=== PATIENT | female | born 1965 | race Two or more races ===

== ENCOUNTER 2020-10-02 14:16 | Inpatient (IN) ==
[2020-10-02] MEDS ORDERED: PNEUMOCOCCAL VACCINE (23 VALENT) 0.5 ML VIAL IM ONE (17:00)
[2020-10-02] MEDS ORDERED: INFLUENZA VIRUS VACCINE 0.5 ML SYRINGE IM ONE (17:00)
[2020-10-02] MEDS ORDERED: GLUCAGON 1 MG VIAL IM PRN ×2 (18:20)
[2020-10-02] MEDS ORDERED: ONDANSETRON 4 MG/2 ML VIAL IV PRN (18:20)
[2020-10-02] MEDS ORDERED: ACETAMINOPHEN 325 MG TABLET PO PRN (18:20)
[2020-10-02] MEDS ORDERED: DEXTROSE 50% 25 GM/50 ML VIAL IV PRN ×2 (18:20)
[2020-10-02] MEDS ORDERED: ENOXAPARIN 40 MG/0.4 ML SYRINGE SUBCUT SCH (18:30)
[2020-10-02] MEDS ORDERED: NICOTINE 7 MG/24 HR PATCH TRANSDERM PRN (19:16)
[2020-10-02] MEDS ORDERED: ALBUTEROL/IPRATROPIUM 3 ML NEB RESP TX PRN (19:17)
[2020-10-02] MEDS: MORPHINE 4 MG/1 ML VIAL IV PRN (20:29)
[2020-10-02] MEDS ORDERED: ENOXAPARIN 100 MG/ML SYRINGE SUBCUT SCH (21:00)
[2020-10-02] MEDS: INSULIN LISPRO 100 UNIT/ML SUBCUT SCH (21:25)
[2020-10-02] MEDS: NITROGLYCERIN SL 0.4 MG TABLET SL PRN ×3 (23:35→23:53)
[2020-10-03] MEDS: MORPHINE 4 MG/1 ML VIAL IV PRN (00:04)
[2020-10-03 01:29] LABS: Albumin 2.8 G/DL (3.4-5.0); Calcium 8.7 MG/DL (8.5-10.1); Potassium 4.9 MMOL/L (3.5-5.1)
[2020-10-03 02:09] LABS: Basophils # 0.1 10*3/uL (0.0-0.2); Basophils % 1.1 % (0.0-0.8); Eosinophils # 0.4 10*3/uL (0.0-0.87); Eosinophils % 3.9 % (0.00-10.9); Hematocrit 28.8 VOL% (35.7-47.0); Hemoglobin 7.7 GM/DL (12.0-16.0); Immature Granulocytes % 0.5 %; Immature Granulocytes Absolute 0.05 #; Lymphocytes # 2.4 10*3/uL (1.4-4.0); Lymphocytes % 22.4 % (21.3-54.2); Mean Corpuscular HGB Conc 26.7 GM/DL (32-36); Mean Corpuscular Volume 64.6 FL (87-102); Monocytes % 9.9 % (1.7-12.7); NRBC # 0.05 10*3/uL; Neutrophils % 62.2 % (38.7-73.9); Platelet Count 450 T/CUMM (130-400); Red Blood Count 4.46 MC/CUMM (3.8-5.5); Red Cell Distribution Width 20.4 % (9.3-17.3); White Blood Count 10.6 T/CUMM (4-12)
[2020-10-03 02:51] LABS: Anisocytosis 1+; Hypochromasia Slight; Macrocytosis Slight; Microcytosis 1+; Ovalocytes 1+
[2020-10-03 02:52] LABS: Polychromasia Few; Schistocytes Few
[2020-10-03 02:53] LABS: Platelet Estimate Adequate
[2020-10-03 06:10] LABS: Basophils # 0.1 10*3/uL (0.0-0.2); Calcium 8.5 MG/DL (8.5-10.1); Eosinophils # 0.3 10*3/uL (0.0-0.87); Hematocrit 29.5 VOL% (35.7-47.0); Hemoglobin 7.9 GM/DL (12.0-16.0); Immature Granulocytes % 0.4 %; Immature Granulocytes Absolute 0.04 #; Lymphocytes # 2.5 10*3/uL (1.4-4.0); Lymphocytes % 23.9 % (21.3-54.2); Mean Corpuscular HGB Conc 26.8 GM/DL (32-36); Mean Corpuscular Volume 64.1 FL (87-102); Mean Platelet Volume 9.9 FL (9.6-12.0); Monocytes % 9.6 % (1.7-12.7); NRBC # 0.05 10*3/uL; Neutrophils % 62.1 % (38.7-73.9); Osmolality,Calculated 278.8 MOS/KG (273-304); Platelet Count 429 T/CUMM (130-400); Red Cell Distribution Width 20.3 % (9.3-17.3); White Blood Count 10.6 T/CUMM (4-12)
[2020-10-03 06:19] LABS: Ovalocytes 1+; Platelet Estimate Normal; Poikilocytosis 1+
[2020-10-03 06:20] LABS: Anisocytosis 3+; Polychromasia Slight; Tear Drop Cells Few
[2020-10-03 06:21] LABS: Hypochromasia 1+; Macrocytosis Slight
[2020-10-03] MEDS ORDERED: ENOXAPARIN 40 MG/0.4 ML SYRINGE SUBCUT SCH (09:00)
[2020-10-03] MEDS: FUROSEMIDE 40 MG/4 ML VIAL IV SCH ×2 (09:04→17:09)
[2020-10-03] MEDS: INSULIN LISPRO 100 UNIT/ML SUBCUT SCH ×4 (09:05→21:22)
[2020-10-03] MEDS: LEVOFLOXACIN INJ 500 MG in PREMIX 1 EACH IV SCH (09:05)
[2020-10-03] MEDS: ASPIRIN EC 81 MG TABLET PO SCH (09:22)
[2020-10-03] MEDS: LEVOTHYROXINE 25 MCG TABLET PO SCH (09:22)
[2020-10-03] MEDS ORDERED: DIAZEPAM 5 MG TABLET PO ONE (09:40)
[2020-10-03] MEDS ORDERED: POTASSIUM CHLORIDE RIDER 10 MEQ in PREMIX 1 EACH IV PRN (09:40)
[2020-10-03] MEDS ORDERED: diphenhydrAMINE CAP 25 MG CAPSULE PO ONE (09:40)
[2020-10-03] MEDS ORDERED: MAGNESIUM SULF RIDER 2 GM in PREMIX 1 EACH IV PRN (09:40)
[2020-10-03] MEDS ORDERED: HEPARIN/NACL 0.9% 2 UNITS/ML 1,000 ML IV ONE (13:57)
[2020-10-03] MEDS ORDERED: LIDOCAINE 1% 20 ML VIAL ONE (13:57)
[2020-10-03] MEDS ORDERED: NITROGLYCERIN DRIP 50 MG/250 ML BOTTLE IV ONE (14:12)
[2020-10-03] MEDS ORDERED: VERAPAMIL 5 MG/2 ML VIAL ONE (14:12)
[2020-10-03] MEDS ORDERED: HYDROmorphone 2 MG/1 ML VIAL ONE (14:16)
[2020-10-03] MEDS ORDERED: MIDAZOLAM 2 MG/2 ML VIAL ONE (14:17)
[2020-10-03] MEDS ORDERED: diphenhydrAMINE 50 MG/1 ML VIAL ONE (14:21)
[2020-10-03] MEDS ORDERED: ENOXAPARIN 30 MG/0.3 ML SYRINGE ONE (14:30)
[2020-10-03] MEDS ORDERED: DEXTROSE 50% 25 GM/50 ML VIAL IV PRN (14:55)
[2020-10-03] MEDS ORDERED: ZALEPLON 5 MG CAPSULE PO PRN (14:55)
[2020-10-03] MEDS: carvediloL 3.125 MG TABLET PO SCH (21:22)
[2020-10-03] MEDS: ATORVASTATIN 20 MG TABLET PO SCH (21:22)
[2020-10-04] MEDS: LEVOTHYROXINE 25 MCG TABLET PO SCH (06:13)
[2020-10-04 06:23] LABS: Basophils # 0.1 10*3/uL (0.0-0.2); Basophils % 1.2 % (0.0-0.8); Eosinophils # 0.3 10*3/uL (0.0-0.87); Eosinophils % 3.9 % (0.00-10.9); Hematocrit 27.5 VOL% (35.7-47.0); Hemoglobin 7.7 GM/DL (12.0-16.0); Immature Granulocytes % 0.5 %; Immature Granulocytes Absolute 0.04 #; Lymphocytes # 2.4 10*3/uL (1.4-4.0); Lymphocytes % 27.9 % (21.3-54.2); Mean Corpuscular Volume 62.8 FL (87-102); Mean Platelet Volume 10.2 FL (9.6-12.0); Monocytes % 8.5 % (1.7-12.7); NRBC # 0.05 10*3/uL; Platelet Count 414 T/CUMM (130-400); Red Blood Count 4.38 MC/CUMM (3.8-5.5); Red Cell Distribution Width 20.1 % (9.3-17.3); White Blood Count 8.7 T/CUMM (4-12)
[2020-10-04 06:27] LABS: Calcium 7.9 MG/DL (8.5-10.1); Osmolality,Calculated 277.8 MOS/KG (273-304); Potassium 3.7 MMOL/L (3.5-5.1)
[2020-10-04 06:30] LABS: Platelet Estimate Normal
[2020-10-04 06:31] LABS: Anisocytosis 2+; Burr Cells Few; Ovalocytes Few; Poikilocytosis 1+; Polychromasia Slight; Target Cells 1+; Tear Drop Cells Few
[2020-10-04 06:32] LABS: Risk Ratio 3.06; VLDL CHOLESTEROL 15.6 MG/DL
[2020-10-04 07:39] LABS: Sedimentation Rate-Westergren 16 MM/HR (0-30)
[2020-10-04] MEDS: ASPIRIN EC 81 MG TABLET PO SCH (08:40)
[2020-10-04] MEDS: FUROSEMIDE 40 MG/4 ML VIAL IV SCH ×2 (08:40→15:36)
[2020-10-04] MEDS: SPIRONOLACTONE 25 MG TABLET PO SCH (08:40)
[2020-10-04] MEDS: LEVOFLOXACIN INJ 500 MG in PREMIX 1 EACH IV SCH (08:41)
[2020-10-04] MEDS: INSULIN LISPRO 100 UNIT/ML SUBCUT SCH ×3 (08:48→15:36)
[2020-10-04] MEDS: carvediloL 3.125 MG TABLET PO SCH ×2 (08:49→20:55)
[2020-10-04] MEDS ORDERED: MAGNESIUM SULF RIDER 2 GM in PREMIX 1 EACH IV ONE (09:06)
[2020-10-04 10:27] LABS: Folate 7.1 NG/ML (5.38-24.0); Vitamin B12 264 PG/ML (211-911)
[2020-10-04 10:45] LABS: % Iron Saturation 2.6 % (18-50)
[2020-10-04] MEDS ORDERED: IRON SUCROSE 200 MG in SODIUM CHLORIDE 0.9% 100 ML IV ONE (13:00)
[2020-10-04] MEDS: ATORVASTATIN 20 MG TABLET PO SCH (20:55)
[2020-10-05] MEDS: INSULIN LISPRO 100 UNIT/ML SUBCUT SCH ×4 (00:23→17:07)
[2020-10-05] MEDS: LEVOTHYROXINE 25 MCG TABLET PO SCH (06:35)
[2020-10-05 07:04] LABS: Calcium 7.8 MG/DL (8.5-10.1); Osmolality,Calculated 282.4 MOS/KG (273-304); Potassium 3.2 MMOL/L (3.5-5.1)
[2020-10-05 07:27] LABS: Basophils # 0.1 10*3/uL (0.0-0.2); Basophils % 1.1 % (0.0-0.8); Eosinophils # 0.5 10*3/uL (0.0-0.87); Hematocrit 30.2 VOL% (35.7-47.0); Hemoglobin 8.4 GM/DL (12.0-16.0); Immature Granulocytes % 0.5 %; Immature Granulocytes Absolute 0.04 #; Lymphocytes # 2.3 10*3/uL (1.4-4.0); Lymphocytes % 29.3 % (21.3-54.2); Mean Corpuscular HGB Conc 27.8 GM/DL (32-36); Monocytes % 10.4 % (1.7-12.7); NRBC # 0.06 10*3/uL; Neutrophils % 52.7 % (38.7-73.9); Platelet Count 434 T/CUMM (130-400); Red Blood Count 4.87 MC/CUMM (3.8-5.5); Red Cell Distribution Width 20.6 % (9.3-17.3)
[2020-10-05 07:42] LABS: Hypochromasia 1+; Microcytosis 1+; Platelet Estimate Adequate
[2020-10-05] MEDS ORDERED: POTASSIUM CHLORIDE 20 MEQ TABLET PO ONE (08:18)
[2020-10-05] MEDS: ASPIRIN EC 81 MG TABLET PO SCH (08:59)
[2020-10-05] MEDS: SPIRONOLACTONE 25 MG TABLET PO SCH (08:59)
[2020-10-05] MEDS: carvediloL 3.125 MG TABLET PO SCH (08:59)
[2020-10-05] MEDS ORDERED: lisinopriL 2.5 MG TABLET PO SCH (09:00)
[2020-10-05] MEDS: FUROSEMIDE 40 MG/4 ML VIAL IV SCH ×2 (09:01→17:06)
[2020-10-05] MEDS: LEVOFLOXACIN INJ 500 MG in PREMIX 1 EACH IV SCH (09:22)
[2020-10-05 16:41] VITALS: BP 124/73
[2020-10-05] MEDS ORDERED: ATORVASTATIN 40 MG TABLET PO SCH (21:00)
== END 2020-10-05 17:42 | disposition home or self-care (01) | DRG 280 ==
LOC: N.TELES → SUATTDRO 16:30
PROVIDERS: ADMIT Internal Medicine; ATTEND Internal Medicine
PROC: CLCCHCL (ICD-10-PCS; 2020-10-03 13:45)